=== PATIENT | male | born 1965 | race African-American/Black ===

== ENCOUNTER 2018-06-21 15:27 | Emergency (ER) | payer SELFPAY ==
[~2018-06-21] VITALS: Ht 177.8 cm; Wt 93.0 kg
--- NOTE | 2018-06-21 16:00 | NUR ---
ERP AT BS FOR RECTAL EXAM.
[2018-06-21 16:31] LABS: MEAN CORPUSCULAR HEMOGLOBIN 26.8 pg (27.5-34.5); MEAN CORPUSCULAR HGB CONC 31.7 g/dL (33.2-36.2); MEAN CORPUSCULAR VOLUME 84.6 fL (81-97); PLATELET COUNT 238 x10^3/uL (130-400); RED BLOOD COUNT 5.81 x10^6/uL (4.38-5.82); RED CELL DISTRIBUTION WIDTH 16.8 % (9.4-14.8)
[2018-06-21 16:38] LABS: ALBUMIN 3.5 g/dL (3.4-5.0); ANION GAP 7 mmol/L (5-15); CHLORIDE 113 mmol/L (98-107); CREATININE 0.89 mg/dL (0.7-1.3)
[2018-06-21 16:59] LABS: BASOPHILS # (AUTO) 0.02 x10^3/uL (0-0.1); BASOPHILS % (AUTO) 0 % (0-1); EOSINOPHILS # (AUTO) 0.25 x10^3/uL (0-0.4); EOSINOPHILS % (AUTO) 3 % (1-7); LYMPHOCYTES # (AUTO) 1.74 x10^3/uL (1-3.4); LYMPHOCYTES % (AUTO) 22 % (22-44); MD SCAN; MONOCYTES # (AUTO) 1.22 x10^3/uL (0.2-0.8); MONOCYTES % (AUTO) 15 % (2-9); NEUTROPHILS # (AUTO) 4.72 x10^3/uL (1.8-6.8); NEUTROPHILS % (AUTO) 59 % (42-75)
[2018-06-21] MEDS ORDERED: HYDROmorphone 1 MG/ML, 1ML INJ IM ONE (17:32)
[2018-06-21] MEDS ORDERED: HYDROmorphone 2 MG/ML, 1ML ONE (17:34)
[2018-06-21 17:59] VITALS: BP 173/87
--- NOTE | 2018-06-21 17:59 | NUR ---
DR. JAQUEZ WAS IN TO SEE PT. PT MEDICATED WITH DILAUDID IM PER ORDERS. PT UNDERSTANDS POC.
--- NOTE | 2018-06-21 18:32 | NUR ---
PT VERBALIZES RELIEF AFTER PAIN MEDS. D/C INSTRUCTIONS, MEDS, & F/U APPT RV'WD WITH PT, HE VERBALIZES UNDERSTANDING. RX GIVEN X1. PT AMBULATED OUT OF ED WITH SIGNIFICANT OTHER WITHOUT DIFFICULTY.
== END 2018-06-21 18:35 | disposition home or self-care (01) ==
LOC: ED 18:19
DX: K64.4 Residual hemorrhoidal skin tags (principal); K62.5 Hemorrhage of anus and rectum; F17.200 Nicotine dependence, unspecified, uncomplicated
CPT/HCPCS: 36415; 80048; 82040; 85025; 96372; 99283; J1170